=== PATIENT | male | born 1955 | race Caucasian/White ===

== ENCOUNTER 2016-04-10 08:49 | Emergency (ER) | payer OTHER ==
[2016-04-10 09:02] VITALS: BMI 27.8
[2016-04-10] MEDS ORDERED: IBUPROFEN 600 MG TABLET (FP) PO ONE (09:18)
[2016-04-10] MEDS ORDERED: ACETAMINOPHEN 325 MG TABLET (FP) ONE (09:28)
[2016-04-10] MEDS ORDERED: ASPIRIN 81 MG CHEWABLE TABLETS PO ONE (09:28)
[2016-04-10] MEDS ORDERED: ACETAMINOPHEN 325 MG TABLET (FP) PO ONE (09:28)
--- NOTE | 2016-04-10 09:28 | PDOC ---
History of Present Illness - General Chief Complaint: Chest Pain Stated Complaint: PALPITATIONS,LSCP,ELEVATED BP Time Seen by Provider: 04/10/16 09:09 History Source: Patient Exam Limitations: No Limitations - History of Present Illness Initial Comments: 04/10/16 09:19 61y M hx of HTN presents with palpitations, dizziness and neck/chest henry. The patient states that he recently moved from [place], and ran out of his medications ( lisinopril/metoprolol) about 1 week ago, starting approximately 3-4 days ago he started to have intermittent episodes palpitations. Pt endorses feeling mild neck pain on his L neck for the past 2-3 days, it is intermittent, worse when he moves his neck, improves with motrin and states that today it is much improved relative to the past several days. The pt states the pain starts at the base of his skull and radiates to his neck and down to his chest. Pt denies any associated sob, n/v, diaphoresis, worsening with exertion, numbness/ tingling/weakness. Pt endorses feeling lightheaded yesterday, but denies any palpitations, vertigo, syncope, chest pain, headache, back pain, abd pain, diaphoresis. Pt denies etoh abuse, drug use, smoking father of heart problems at 55. Past History - Past Medical History Allergies/Adverse Reactions: Allergies Allergy/AdvReac Type Severity Reaction Status Date / Time No Known Allergies Allergy Verified 04/10/16 08:54 Home Medications: Ambulatory Orders Unobtainable [Unobtainable] 04/10/16 HTN: Yes Other medical history: ENLARGED PROSTATE - Surgical History Appendectomy: Yes - Psycho/Social/Smoking Cessation Hx Suicidal Ideation: No Smoking History: Never smoked Review of Systems - Review of Systems Able to Perform ROS?: Yes Comments:: 04/10/16 09:29 Constitutional - no reported Fever, Chills, weakness, HEENT: +neck pain no reported vision changes, sore throat Respiratory: no reported cough, sob, hemoptysis Cardiac: +light headedness,palpitations, no reported chest pain, leg swelling Abd/GI: no reported abd pain, nausea, vomiting, blood per rectum, melena, diarrhea : no reported dysuria, frequency, discharge Musculskelatal - no reported back pain, joint swelling skin - no reported bruising, erythema, rash neurological: no reported headache, numbness, focal weakness, tingling, ataxia, weakness hematologic: no reported anemia, easy bruising, easy bleeding *Physical Exam - Vital Signs Last Vital Signs Temp Pulse Resp BP Pulse Ox 98.2 F 66 20 162/98 98 04/10/16 08:55 04/10/16 09:20 04/10/16 09:20 04/10/16 09:20 04/10/16 09:20 - Physical Exam Comments: 04/10/16 09:33 GENERAL: The patient is awake, alert, and fully oriented, Nontoxic - in no acute distress. HEAD: Normocephalic, atraumatic. EYES: extraocular movements intact, sclera anicteric, conjunctiva clear. ENT: Normal voice, Moist mucous membranes. NECK: Normal range of motion, supple LUNGS: Breath sounds equal, clear to auscultation bilaterally. No wheezes, no rhonchi, no rales. HEART: Regular rate and rhythm, normal S1 and S2 without murmur, rub or gallop. ABDOMEN: Soft, nontender, normoactive bowel sounds. No guarding, no rebound. . No CVA tenderness EXTREMITIES: Normal range of motion, no edema. No clubbing or cyanosis. No cords, erythema, or tenderness. NEUROLOGICAL: No facial assymetry, Normal speech, moving all 4 extremities spontaneously and symmetrically PSYCH: Normal mood, normal affect. SKIN: Warm, Dry, normal turgor, Heart Score/ECG Review - ECG Impressions Comment:: 04/10/16 09:34 Twelve-lead EKG was performed and reviewed by me. There is normal sinus rhythm with a normal rate. Rate of 80 Right bundle-branch block, left anterior fascicular block Q waves in inferior leads No old EKG for comparison ED Treatment Course - LABORATORY CBC & Chemistry Diagram: 04/10/16 09:24 04/10/16 09:24 - ADDITIONAL ORDERS Additional order review: Laboratory Results 04/10/16 04/10/16 04/10/16 13:08 13:08 09:24 INR Sodium Potassium Chloride Carbon Dioxide Anion Gap BUN Creatinine Creat Clearance w eGFR Random Glucose Calcium Total Bilirubin AST ALT Alkaline Phosphatase Creatine Kinase 150 Creatine Kinase Index CK-MB (CK-2) CK-MB (CK-2) Rel Index Cancelled Cancelled Troponin I < 0.02 Total Protein Albumin 04/10/16 04/10/16 09:24 09:24 INR 0.95 Sodium 140 Potassium 3.9 Chloride 103 Carbon Dioxide 28 Anion Gap 9 BUN 11 Creatinine 0.9 Creat Clearance w eGFR > 60 Random Glucose 120 H Calcium 9.4 Total Bilirubin 0.3 AST 29 ALT 34 Alkaline Phosphatase 87 Creatine Kinase 185 Creatine Kinase Index 1.3 CK-MB (CK-2) 2.367 CK-MB (CK-2) Rel Index Troponin I < 0.02 Total Protein 7.5 Albumin 3.9 04/10/16 09:24 RBC 5.65 H MCV 82.2 MCHC 33.7 RDW 14.1 MPV 7.8 Neutrophils % 51.3 Lymphocytes % 34.7 Monocytes % 8.6 Eosinophils % 4.4 Basophils % 1.0 - RADIOLOGY Radiology Studies Ordered: Category Date Time Status CHEST X-RAY PORTABLE* [RAD] Stat Radiology 04/10/16 09:18 Completed - Medications Given in the ED: ED Medications Discontinued Medications Generic Name Dose Route Start Last Admin Trade Name Ziggy PRN Reason Stop Dose Admin Acetaminophen 650 mg 04/10/16 09:28 04/10/16 09:31 Tylenol - PO 04/10/16 09:29 650 mg ONCE ONE Administration Aspirin 162 mg 04/10/16 09:28 04/10/16 09:31 Asa - PO 04/10/16 09:29 162 mg ONCE ONE Administration Ibuprofen 600 mg 04/10/16 09:18 04/10/16 09:38 Motrin - PO 04/10/16 09:19 Not Given ONCE ONE Lisinopril 10 mg 04/10/16 09:46 04/10/16 10:10 Prinivil PO 04/10/16 09:47 10 mg ONCE ONE Administration Medical Decision Making - Medical Decision Making 04/10/16 09:35 61y M hx of htn presents with episodic palpatitions, pt also endorses gradual onset left neck pain that starts at the base of his skull and radiate down his shoulder and to his chest and is worse when he moves his head. no associated neurologic complaints, no associated sob, n/v, diaprhoesis, exertional symptoms. pts exam is unremarakble bp here noted to be elevated. will give pt his typical dose of bp meds once verified will ck labs to r/o anemia, metabolic derangement will give tylenol for his neck pain -->? suspect this is msk in nature. will ck ekg to ro arrythmia, trops to r/o acs will reassess 04/10/16 14:34 pt feeling improved trop neg x 2 suspect neck pain is msk in nature will d/c with supportive mangaement will have pt fu with pmd return precautions were discussed I discussed the physical exam findings, ancillary test results and final diagnoses with the patient. I answered all of the patient's questions. The patient was satisfied with the care received and felt comfortable with the discharge plan and treatment plan. The patient will call their primary care physician within 24 hours to arrange follow-up and will return to the Emergency Department with any new, persistent or worsening symptoms. *DC/Admit/Observation/Transfer Diagnosis at time of Disposition: Neck pain, musculoskeletal - Discharge Dispostion Condition at time of disposition: Improved Admit: No - Referrals Referrals: [facility] [Provider Group] - Patient Instructions Printed Discharge Instructions: DI for Atypical Chest Pain Additional Instructions: Vuelva al departamento de emergencia inmediatamente con CUALQUIER nuevo, persistente o empeorando los sntomas incluyendo cualquier incomodidad, falta de aliento, entumecimiento / hormigueo / debilidad o cualquier otra preocupaci n. Debe llamar y hacer el seguimiento con zimmerman mdico en 3-4 sharpe para neo evaluaci n ms detallada de neil sntomas. Los resultados fueron discutidos con usted. Por favor, asegrese de que zimmerman mdico revise los resultados de zimmerman evaluacin de emergencia. Return to the emergency department immediately with ANY new, persistent or worsening symptoms including any discomfort, shortness of breath, numbness/ tingling/weakness or any other concerns. You MUST call and follow up with your doctor in 3-4 days for further evaluation of your symptoms. Results were discussed with you. Please make sure your doctor reviews the results of your emergency evaluation. Print Language: YAKUT
[2016-04-10] MEDS ORDERED: ASPIRIN 81 MG CHEWABLE TABLETS ONE (09:29)
[2016-04-10 09:32] LABS: EOSINOPHIL 4.4 % (0-4.5); MCH 27.7 pg (25.7-33.7); MCHC 33.7 g/dl (32.0-35.9); MEAN CELL VOLUME 82.2 fl (80-96); MEAN PLT VOLUME 7.8 fl (7.5-11.1); NEUTROPHILS 51.3 % (42.8-82.8); PLATELET COUNT 299 K/MM3 (134-434); RDW 14.1 % (11.9-15.9); WHITE BLOOD COUNT 8.6 K/mm3 (4.0-10.0)
[2016-04-10] MEDS ORDERED: LISINOPRIL 10 MG TABLET (FP) PO ONE (09:46)
[2016-04-10] MEDS ORDERED: LISINOPRIL 5 MG TABLET (FP) ONE (09:48)
[2016-04-10 10:03] LABS: ALBUMIN 3.9 g/dl (3.4-5.0); ANION GAP 9 (8-16); BILIRUBIN,TOTAL 0.3 mg/dL (0.2-1.0); CALCIUM 9.4 mg/dL (8.5-10.1); CO2 28 mmol/L (21-32); CREATININE 0.9 mg/dL (0.7-1.3); GLUCOSE,RANDOM 120 mg/dL (74-106); SGOT/AST 29 U/L (15-37); SGPT/ALT 34 U/L (12-78); TOT PROT 7.5 g/dl (6.4-8.2)
[2016-04-10 10:06] LABS: ALK PHOS 87 U/L (45-117); TROPONIN I < 0.02 ng/ml (0.00-0.05)
[2016-04-10 11:18] LABS: INR 0.95 (0.82-1.09); PROTHROMBIN TIME (PATIENT) 10.4 SEC (9.98-11.88)
[2016-04-10 14:13] LABS: TROPONIN I < 0.02 ng/ml (0.00-0.05)
[2016-04-10 14:52] VITALS: BP 163/101; PULSE 65; TEMP 98.5
--- NOTE | 2016-04-10 15:46 | EKG ---
Test Reason : Blood Pressure : / mmHG Vent. Rate : 080 BPM Atrial Rate : 080 BPM P-R Int : 192 ms QRS Dur : 154 ms QT Int : 402 ms P-R-T Axes : 038 -60 016 degrees QTc Int : 463 ms NORMAL SINUS RHYTHM RIGHT BUNDLE BRANCH BLOCK LEFT ANTERIOR FASCICULAR BLOCK BIFASCICULAR BLOCK CANNOT RULE OUT INFERIOR INFARCT (MASKED BY FASCICULAR BLOCK?) , AGE UNDETERMINED ABNORMAL ECG NO PREVIOUS ECGS AVAILABLE Confirmed by ANDER CLAROS MD ([id number]) on 04/10/2016 3:46:11 PM Referred By: Confirmed By:ANDER CLAROS MD
[2016-04-10 15:59] LABS: THYROID STIMULATING HORMONE 1.56 uIU/ml (0.358-3.74)
== END 2016-04-10 14:52 | disposition home or self-care (01) ==
LOC: JER 08:49
DX: M54.2 Cervicalgia (principal); R07.89 Other chest pain; I10 Essential (primary) hypertension
CPT/HCPCS: 36415; 71010-TC; 80053; 82550; 82553; 84443; 84484; 85025; 85610; 93005; 93010; 99285-25